=== PATIENT | female | born 1965 | race Caucasian/White ===

== ENCOUNTER 2017-08-24 21:39 | Emergency (ER) | payer OTHER ==
[~2017-08-24] VITALS: Ht 160 cm; Wt 76.4 kg
[~2017-08-24 21:39] MED LIST: CETI10 PO; LEVO100T4 PO
[2017-08-24 21:42] VITALS: PULSE 67; RESP 18; TEMP 98.3; O2SAT 98
[2017-08-24] MEDS ORDERED: ALLE4TAB7 PO (22:04)
[2017-08-24] MEDS ORDERED: LORA-392 PO (22:04)
[2017-08-24] MEDS ORDERED: VITA200013 (22:04)
[2017-08-24] MEDS ORDERED: HYDR12.57 PO (22:04)
[2017-08-24] MEDS ORDERED: LEVO25TA4 PO (22:04)
[2017-08-24] MEDS ORDERED: ALLE4TAB28 PO (22:04)
--- NOTE | 2017-08-24 22:20 | PD ---
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 She was stuck in the left index finger. She denies any other issues or injuries. Modifying Factors: None Associated Signs & Symptoms: Needlestick injury to the finger Risk Factors: None PFSH Past Medical History Cardiovascular Problems: Yes (HTN) Cerebrovascular Accident: No Hypertension: Yes Medical other: Yes (UTERINE ABLASION) Myocardial Infarction: No Thyroid Disease: Yes Tetanus Vaccination: > 5 Years Influenza Vaccination: Yes ?: Not LMP: 2 YEARS AGO Social History Alcohol Use: Yes (OCCASIONAL) Tobacco Use: Yes (1/2 PPD) Substance Use: No Allergies-Medications (Allergen,Severity, Reaction): Coded Allergies: No Known Allergies (Unverified Adverse Reaction, Unknown, 08/24/17) epinephrine (Verified Adverse Reaction, Unknown, 08/24/17) STATES UNABLE TO SPEAK WHEN GIVEN EPI Reported Meds & Prescriptions Reported Meds & Active Scripts Active Reported Allergy Relief (Chlorpheniramine Maleate) 4 Mg Tab Unknown Dose PO Q4H PRN Allergy (Chlorpheniramine Maleate) 4 Mg Tab 4 Mg PO Q4H PRN Vitamin D (Cholecalciferol) 2,000 Unit Cap Unknown Dose Ativan (Lorazepam) 0.5 Mg Tab Unknown Dose PO HS PRN Hydrochlorothiazide 12.5 Mg Cap Unknown Dose PO DAILY Levothyroxine (Levothyroxine Sodium) 25 Mcg Tab Unknown Dose PO DAILY Review of Systems Except as stated in HPI: all other systems reviewed are Neg Physical Exam Narrative GENERAL: Well-nourished, well-developed patient in no acute distress. Awake and oriented 3. SKIN: Focused skin assessment warm/dry. Small puncture wound to the finger notable. HEAD: Normocephalic. EYES: No scleral icterus. No injection or drainage. NECK: Supple, trachea midline. No JVD or lymphadenopathy. CARDIOVASCULAR: Regular rate and rhythm without murmurs, gallops, or rubs. RESPIRATORY: Breath sounds equal bilaterally. No accessory muscle use. GASTROINTESTINAL: Abdomen soft, non-tender, nondistended. MUSCULOSKELETAL: No cyanosis, or edema. BACK: Nontender without obvious deformity. No CVA tenderness. Data Data Last Documented VS Vital Signs Date Time Temp Pulse Resp B/P (MAP) Pulse Ox O2 Delivery O2 Flow Rate FiO2 08/24/17 21:42 98.3 67 18 98 Orders Orders Complete Blood Count With Diff (08/24/17 22:32) Comprehensive Metabolic Panel (08/24/17 22:32) Amylase (08/24/17 22:32) Beta Hcg (Quant/Titer) (08/24/17 22:32) Labs Laboratory Tests Test 08/24/17 22:40 White Blood Count 8.6 TH/MM3 Red Blood Count 4.56 MIL/MM3 Hemoglobin 13.8 GM/DL Hematocrit 40.6 % Mean Corpuscular Volume 89.0 FL Mean Corpuscular Hemoglobin 30.1 PG Mean Corpuscular Hemoglobin Concent 33.8 % Red Cell Distribution Width 13.7 % Platelet Count 381 TH/MM3 Mean Platelet Volume 7.5 FL Neutrophils (%) (Auto) 61.3 % Lymphocytes (%) (Auto) 30.1 % Monocytes (%) (Auto) 5.7 % Eosinophils (%) (Auto) 2.1 % Basophils (%) (Auto) 0.8 % Neutrophils # (Auto) 5.2 TH/MM3 Lymphocytes # (Auto) 2.6 TH/MM3 Monocytes # (Auto) 0.5 TH/MM3 Eosinophils # (Auto) 0.2 TH/MM3 Basophils # (Auto) 0.1 TH/MM3 CBC Comment DIFF FINAL Differential Comment Blood Urea Nitrogen 16 MG/DL Creatinine 0.94 MG/DL Random Glucose 95 MG/DL Total Protein 7.2 GM/DL Albumin 3.7 GM/DL Calcium Level 8.8 MG/DL Alkaline Phosphatase 80 U/L Aspartate Amino Transf (AST/SGOT) 21 U/L Alanine Aminotransferase (ALT/SGPT) 28 U/L Total Bilirubin 0.5 MG/DL Sodium Level 139 MEQ/L Potassium Level 3.1 MEQ/L Chloride Level 102 MEQ/L Carbon Dioxide Level 30.5 MEQ/L Anion Gap 7 MEQ/L Estimat Glomerular Filtration Rate 63 ML/MIN Amylase Level 56 U/L Human Chorionic Gonadotropin, Quant LESS THAN 1 MIU/ML MDM Medical Decision Making Medical Screen Exam Complete: Yes Emergency Medical Condition: Yes Medical Record Reviewed: Yes Interpretation(s) Laboratory Tests Test 08/24/17 22:40 Potassium Level 3.1 MEQ/L (3.5-5.1) Estimat Glomerular Filtration Rate 63 ML/MIN (>89) Differential Diagnosis Needlestick injury Narrative Course Patient's source seems to be fairly low risk patient, no history of HIV or hepatitis on record. Testing has been ordered for the patient. At this point, I have talked to her about HIV prophylaxis. Patient apparently is a non- converter for hepatitis B shots. This has been noted in the chart and her lab work has been sent. She was considering PEP initially but considering that the patient is low risk, at this point has decided not to do the PPD. She will need to follow-up with [facility] [place] [facility] tomorrow. Further recommendations will be given based on patient's results. The plan was discussed with her and she states understanding. Diagnosis Primary Impression: Needlestick injury accident with exposure to body fluid Disposition: 01 DISCHARGE HOME Condition: Stable Kristi Tinajero MD Aug 24, 2017 22:20
[2017-08-24 22:51] LABS: AUTOMATED NEUTROPHIL # 5.2 TH/MM3 (1.8-7.7); BASOPHIL # 0.1 TH/MM3 (0-0.2); BASOPHIL % 0.8 % (0.0-2.0); EOSINOPHIL # 0.2 TH/MM3 (0-0.4); EOSINOPHIL % 2.1 % (0.0-4.0); HEMATOCRIT 40.6 % (35.0-46.0); HEMOGLOBIN 13.8 GM/DL (11.6-15.3); LYMPH % 30.1 % (9.0-44.0); LYMPHOCYTE # 2.6 TH/MM3 (1.0-4.8); MEAN CORPUSCULAR HEMOGLOBIN 30.1 PG (27.0-34.0); MEAN CORPUSCULAR HGB CONC 33.8 % (32.0-36.0); MEAN PLATELET VOLUME 7.5 FL (7.0-11.0); MONO % 5.7 % (0.0-8.0); MONOCYTE # 0.5 TH/MM3 (0-0.9); NEUT % 61.3 % (16.0-70.0); PLATELET COUNT 381 TH/MM3 (150-450); RED BLOOD COUNT 4.56 MIL/MM3 (4.00-5.30); RED CELL DISTRIBUTION WIDTH 13.7 % (11.6-17.2); WHITE BLOOD COUNT 8.6 TH/MM3 (4.0-11.0)
[2017-08-24 22:59] LABS: CHLORIDE 102 MEQ/L (98-107); SODIUM (NA) 139 MEQ/L (136-145)
[2017-08-24 23:02] LABS: CALCIUM 8.8 MG/DL (8.5-10.1)
[2017-08-24 23:03] LABS: ALBUMIN 3.7 GM/DL (3.4-5.0); BICARBONATE 30.5 MEQ/L (21.0-32.0); BLOOD UREA NITROGEN 16 MG/DL (7-18); GLUCOSE,RANDOM 95 MG/DL (74-106)
[2017-08-24 23:06] LABS: ALT (GPT) 28 U/L (10-53); AST (GOT) 21 U/L (15-37); CREATININE 0.94 MG/DL (0.50-1.00); GLOMERULAR FILTRATION RATE 63 ML/MIN (>89)
[2017-08-24 23:08] LABS: TOTAL BILIRUBIN ADULT 0.5 MG/DL (0.2-1.0); TOTAL PROTEIN 7.2 GM/DL (6.4-8.2)
[2017-08-24 23:09] LABS: ALKALINE PHOSPHATASE 80 U/L (45-117)
== END 2017-08-24 23:39 | disposition home or self-care (01) ==
LOC: PHEFT 21:39
DX: S69.92XA Unspecified injury of left wrist, hand and finger(s), initial encounter (principal); I10 Essential (primary) hypertension; E07.9 Disorder of thyroid, unspecified; F17.200 Nicotine dependence, unspecified, uncomplicated; W46.1XXA Contact with contaminated hypodermic needle, initial encounter; Z77.21 Contact with and (suspected) exposure to potentially hazardous body fluids
CPT/HCPCS: 80053; 82150; 84702; 85025; 99283